=== PATIENT | female | born 1960 | race Caucasian/White ===

== ENCOUNTER → 2021-01-21 | Outpatient (CLI) | payer OTHER ==
[~2021-01-21] MED LIST: CYCLOBENZAPRINE5 MG PO; KEFLEX CAP 500500 MG PO; MOBIC15 MG PO; TAMIFLU 75 MG C75 MG GT; ZITHROMAX250 MG PO
== END ==
LOC: KOH-I 15:31
DX: R79.89 Other specified abnormal findings of blood chemistry (principal)
CPT/HCPCS: 76775

== ENCOUNTER 2021-03-15 05:34 | Emergency (ER) | payer OTHER ==
[~2021-03-15 05:34] MED LIST changes: -CYCLOBENZAPRINE5 MG PO; -MOBIC15 MG PO
[2021-03-15] MEDS ORDERED: MOBIC15 MG PO (09:13)
[2021-03-15] MEDS ORDERED: CYCLOBENZAPRINE5 MG PO (09:13)
== END 2021-03-15 09:55 | disposition home or self-care (01) ==
LOC: ER1 05:34
DX: S30.0XXA Contusion of lower back and pelvis, initial encounter (principal); M51.36 Other intervertebral disc degeneration, lumbar region; J44.9 Chronic obstructive pulmonary disease, unspecified; N18.9 Chronic kidney disease, unspecified; I12.9 Hypertensive chronic kidney disease with stage 1 through stage 4 chronic kidney disease, or unspecified chronic kidney disease; E11.22 Type 2 diabetes mellitus with diabetic chronic kidney disease; Z90.49 Acquired absence of other specified parts of digestive tract; Z88.2 Allergy status to sulfonamides; Z79.01 Long term (current) use of anticoagulants; F17.200 Nicotine dependence, unspecified, uncomplicated; W22.8XXA Striking against or struck by other objects, initial encounter
CPT/HCPCS: 71111; 72100; 81001; 99284

== ENCOUNTER → 2021-05-15 | Outpatient (CLI) | payer OTHER ==
[~2021-05-15] MED LIST changes: +ASPIRIN CHEWABL81 MG PO; +ATORVASTATIN CA40 MG PO; +COZAAR 25MG TAB25 MG PO; +CYCLOBENZAPRINE5 MG PO; +FLUOXETINE HCL40 MG PO; +GLUCOPHAGE 500500 MG PO; +HYDROCHLOROTH12.5 MG PO; +LANTUS100 UNIT/1 SQ; +MOBIC15 MG PO; +SYNTHROID75 MCG PO
[2021-05-15 13:18] LABS: BUN/CREATININE RATIO 20 (0-10)
[2021-05-16 06:10] LABS: CREATININE, URINE 78.9 mg/dL (Not Estab.)
== END ==
LOC: LAB 11:52
PROVIDERS: Internal Medicine Nephrology
DX: N17.9 Acute kidney failure, unspecified (principal)
CPT/HCPCS: 36415; 80053; 81001; 82043; 82570; 84156

== ENCOUNTER 2021-05-31 22:32 | Observation (INO) | payer OTHER ==
[~2021-05-31] VITALS: Ht 170.2 cm; Wt 135.6 kg
[~2021-05-31 22:32] MED LIST changes: -ASPIRIN CHEWABL81 MG PO; -ATORVASTATIN CA40 MG PO; -COZAAR 25MG TAB25 MG PO; -FLUOXETINE HCL40 MG PO; -GLUCOPHAGE 500500 MG PO; -HYDROCHLOROTH12.5 MG PO; -LANTUS100 UNIT/1 SQ; -SYNTHROID75 MCG PO
[2021-06-01 01:38] LABS: BUN/CREATININE RATIO 24 (0-10); HEMOGLOBIN 14.1 gm/dl (12.3-15.3); RED BLOOD COUNT 4.93 M/UL (4.00-5.10); WHITE BLOOD COUNT 12.7 K/UL (4.5-11.0)
[2021-06-01 15:41] LABS: BUN/CREATININE RATIO 28 (0-10)
[2021-06-01] MEDS ORDERED: FLUOXETINE HCL40 MG PO (21:27)
[2021-06-01] MEDS ORDERED: SYNTHROID75 MCG PO (21:28)
[2021-06-01] MEDS ORDERED: COZAAR 25MG TAB25 MG PO (21:28)
[2021-06-01] MEDS ORDERED: HYDROCHLOROTH12.5 MG PO (21:29)
[2021-06-01] MEDS ORDERED: GLUCOPHAGE 500500 MG PO (21:29)
[2021-06-01] MEDS ORDERED: ATORVASTATIN CA40 MG PO (21:29)
[2021-06-01] MEDS ORDERED: ASPIRIN CHEWABL81 MG PO (21:30)
[2021-06-01] MEDS ORDERED: LANTUS100 UNIT/1 SQ (21:30)
[2021-06-02 05:27] LABS: HEMOGLOBIN 13.9 gm/dl (12.3-15.3); RED BLOOD COUNT 4.95 M/UL (4.00-5.10); WHITE BLOOD COUNT 10.3 K/UL (4.5-11.0)
[2021-06-02 05:59] LABS: BUN/CREATININE RATIO 36 (0-10)
--- NOTE | 2021-06-02 13:00 | NUR ---
CARDIO DR CERVANTES CALLED ME AND STATED PT IS ALL CLEAR FOR D/C TO LET DR CARTWRIGHT AWARE , CALLED ACE AND LET HIM KNOW AT THIS TIME
== END 2021-06-02 15:00 | disposition home or self-care (01) ==
LOC: ER1 22:32 → CDU 06-01 02:58 → M/S 06-01 02:58
PROVIDERS: Internal Medicine; Physician Assistant; ADMIT Internal Medicine
DX: R07.89 Other chest pain (principal); N17.9 Acute kidney failure, unspecified; I12.9 Hypertensive chronic kidney disease with stage 1 through stage 4 chronic kidney disease, or unspecified chronic kidney disease; E11.22 Type 2 diabetes mellitus with diabetic chronic kidney disease; N18.9 Chronic kidney disease, unspecified; E78.5 Hyperlipidemia, unspecified; E66.01 Morbid (severe) obesity due to excess calories; R79.89 Other specified abnormal findings of blood chemistry; I49.3 Ventricular premature depolarization; I08.2 Rheumatic disorders of both aortic and tricuspid valves; R94.31 Abnormal electrocardiogram [ECG] [EKG]; F17.210 Nicotine dependence, cigarettes, uncomplicated; E03.9 Hypothyroidism, unspecified; G47.33 Obstructive sleep apnea (adult) (pediatric); Z88.2 Allergy status to sulfonamides; Z20.822 Contact with and (suspected) exposure to COVID-19; Z82.49 Family history of ischemic heart disease and other diseases of the circulatory system
CPT/HCPCS: ECHO; 71045; 78452; 80048; 80053; 82550; 82553; 82962; 83036; 83735; 83874; 83880; 84439; 84443; 84484; 85025; 93005; 93306; 99285; A9502; G0378; J2785; J7030; U0002

== ENCOUNTER → 2021-06-30 | Outpatient (CLI) | payer OTHER ==
[~2021-06-30] MED LIST changes: +ASPIRIN CHEWABL81 MG PO; +ATORVASTATIN CA40 MG PO; +COZAAR 25MG TAB25 MG PO; +FLUOXETINE HCL40 MG PO; +GLUCOPHAGE 500500 MG PO; +HYDROCHLOROTH12.5 MG PO; +LANTUS100 UNIT/1 SQ; +SYNTHROID75 MCG PO
== END ==
LOC: KOH-I 06-26 10:30
DX: F17.210 Nicotine dependence, cigarettes, uncomplicated (principal); R91.8 Other nonspecific abnormal finding of lung field
CPT/HCPCS: 71271

== ENCOUNTER → 2021-08-14 | Outpatient (CLI) | payer OTHER | LOC: LAB 10:19 | PROVIDERS: Internal Medicine Nephrology | DX: N17.9 Acute kidney failure, unspecified (principal) | CPT/HCPCS: 80053; 81001; 82043; 82570; 84156 ==

== ENCOUNTER → 2022-07-02 | Outpatient (CLI) | payer BC ==
[2022-07-03 10:16] LABS: CREATININE, URINE 59.3 mg/dL (Not Estab.)
== END ==
LOC: LAB 12:25
PROVIDERS: Internal Medicine Nephrology
DX: N18.9 Chronic kidney disease, unspecified (principal)
CPT/HCPCS: 36415; 80053; 81001; 82043; 82570; 84156